=== PATIENT | female | born 1960 | race African-American/Black ===

== ENCOUNTER 2017-10-14 09:43 | Emergency (ER) | payer MEDICAID ==
[~2017-10-14] VITALS: Ht 165.1 cm; Wt 85.3 kg
[~2017-10-14 09:43] MED LIST: ASPIR 8181 MG ORAL; CYMBALTA60 MG ORAL; GENVOYA TABLET1 EACH PO; LIPITOR80 MG ORAL; TIVICAY50 MG ORAL; TRUVADA1 TAB ORAL; UNOBMED
[2017-10-14] MEDS ORDERED: BUPROPION XL300 MG ORAL (09:51)
[2017-10-14 09:55] VITALS: BP 132/76
--- NOTE | 2017-10-14 10:13 | Emergency Room Report ---
History of Present Illness General Chief Complaint: Back Pain-No Injury Source: Patient Present Illness HPI The patient states that she has had flank pain for the past 2 weeks. She states that it has become more severe and unbearable over the past 24 hours. She denies trauma. She denies fever or chills. She denies nausea or vomiting. She denies abdominal pain. She denies previous back injury or other history of back pain. She denies dysuria or hematuria. She denies weakness. She denies tingling or numbness. She denies loss of bowel or bladder control. She has no other complaints. Allergies: Coded Allergies: No Known Allergies (Unverified , 05/03/16) Patient History Past Medical History: see triage record, HTN, COPD, psych hx, HIV, other - HLP Social History: Denies: smoking, alcohol use, drug use Reviewed Nursing Documentation: PMH: Agreed; PSxH: Agreed Nursing Documentation-PMH Hx Cardiac Problems: Yes Hx Hypertension: Yes Hx Pacemaker: No - HIV Hx COPD: Yes Hx Cancer: No Hx Gastrointestinal Problems: No Hx Neurological Problems: No Review of Systems All Other Systems: negative except mentioned in HPI Physical Exam Vital Signs Date Time Temp Pulse Resp B/P (MAP) Pulse Ox O2 Delivery O2 Flow Rate FiO2 10/14/17 09:49 97.9 68 20 141/78 96 Room Air 97.9 Sp02 EP Interpretation: reviewed, normal General Appearance: no apparent distress, alert, GCS 15, non-toxic Head: normocephalic, atraumatic Eyes: bilateral eye normal inspection, bilateral eye PERRL ENT: hearing grossly normal, normal pharynx, no angioedema, normal voice Neck: full range of motion, supple/symm/no masses Respiratory: chest non-tender, lungs clear, normal breath sounds, speaking full sentences Cardiovascular #1: regular rate, rhythm, no edema Gastrointestinal: normal bowel sounds, non tender, soft, non-distended, no guarding, no rebound Rectal: deferred Musculoskeletal: gait/station normal, normal range of motion, other - TTP over the L. paraspinal m. Neurologic: alert, oriented x3, responsive, motor strength/tone normal, sensory intact, speech normal Psychiatric: judgement/insight normal, memory normal, mood/affect normal, no suicidal/homicidal ideation Skin: normal color, no rash, warm/dry, well hydrated Medical Decision Making Diagnostic Impression: Primary Impression: Low back pain ER Course This patient has a clinical presentation consistent with musculoskeletal low back pain. There are no red flags on physical exam or history that would make me concerned for underlying fracture. Xray of the Lumbar spine showed... The patient has pain with range of motion and has tenderness to palpation along the muscle. There is no evidence of compartment syndrome. There is no neurologic deficit. The patient was instructed on supportive home measures. No emergency medical condition was identified. The patient was given return precautions and followup instructions. Laboratory Tests Test 10/14/17 10:12 White Blood Count 5.6 K/UL (4.8-10.8) Red Blood Count 4.94 M/UL (4.20-5.40) Hemoglobin 13.3 G/DL (12.0-16.0) Hematocrit 42.4 % (37.0-47.0) Mean Corpuscular Volume 86 FL (80-99) Mean Corpuscular Hemoglobin 27.0 PG (27.0-31.0) Mean Corpuscular Hemoglobin Concent 31.4 G/DL (32.0-36.0) L Red Cell Distribution Width 13.3 % (11.6-14.8) Platelet Count 366 K/UL (150-450) Mean Platelet Volume 6.7 FL (6.5-10.1) Neutrophils (%) (Auto) 61.9 % (45.0-75.0) Lymphocytes (%) (Auto) 28.2 % (20.0-45.0) Monocytes (%) (Auto) 6.4 % (1.0-10.0) Eosinophils (%) (Auto) 2.6 % (0.0-3.0) Basophils (%) (Auto) 0.9 % (0.0-2.0) Urine Color Pale yellow Urine Appearance Turbid Urine pH 6 (4.5-8.0) Urine Specific [place] 1.020 (1.005-1.035) Urine Protein 1+ (NEGATIVE) H Urine Glucose (UA) Negative (NEGATIVE) Urine Ketones Negative (NEGATIVE) Urine Occult Blood 1+ (NEGATIVE) H Urine Nitrite Negative (NEGATIVE) Urine Bilirubin Negative (NEGATIVE) Urine Urobilinogen Normal MG/DL (0.0-1.0) Urine Leukocyte Esterase 1+ (NEGATIVE) H Urine RBC 0-2 /HPF (0 - 2) Urine WBC 2-4 /HPF (0 - 2) Urine Squamous Epithelial Cells Moderate /LPF (NONE/OCC) H Urine Bacteria Few /HPF (NONE) Sodium Level 144 MMOL/L (136-145) Potassium Level 3.7 MMOL/L (3.5-5.1) Chloride Level 109 MMOL/L (98-107) H Carbon Dioxide Level 26 MMOL/L (21-32) Anion Gap 9 mmol/L (5-15) Blood Urea Nitrogen 17 mg/dL (7-18) Creatinine 1.2 MG/DL (0.55-1.30) Estimate Glomerular Filtration Rate 56.2 mL/min (>60) Glucose Level 111 MG/DL (74-106) H Calcium Level 9.2 MG/DL (8.5-10.1) Other X-Ray Diagnostic Results Other X-Ray Diagnostic Results : X-Ray ordered: L-spine xray # of Views/Limited Vs Complete: Complete Indication: Pain EP Interpretation: No Interpretation: no fractures Impression: No acute disease Electronically Signed by: Be Last Vital Signs Date Time Temp Pulse Resp B/P (MAP) Pulse Ox O2 Delivery O2 Flow Rate FiO2 10/14/17 09:49 97.9 68 20 141/78 96 Room Air 97.9 Status: improved Disposition: HOME, SELF-CARE Condition: Improved Referrals: NON PHYSICIAN (PCP) Patient Instructions: Back Pain, Adult SCAR APONTE D.O. October 14, 2017 10:12
[2017-10-14] MEDS ORDERED: Ketorolac 30mg Inj IV ONE (10:15)
[2017-10-14 10:29] LABS: BASOPHILS % (AUTO) 0.9 % (0.0-2.0); EOSINOPHILS % (AUTO) 2.6 % (0.0-3.0); HEMATOCRIT 42.4 % (37.0-47.0); HEMOGLOBIN 13.3 G/DL (12.0-16.0); LYMPHOCYTES % (AUTO) 28.2 % (20.0-45.0); MEAN CORPUSCULAR VOLUME 86 FL (80-99); MONOCYTES % (AUTO) 6.4 % (1.0-10.0); NEUTROPHILS % (AUTO) 61.9 % (45.0-75.0); PLATELET COUNT 366 K/UL (150-450); RED BLOOD COUNT 4.94 M/UL (4.20-5.40); RED CELL DISTRIBUTION WIDTH 13.3 % (11.6-14.8); WHITE BLOOD COUNT 5.6 K/UL (4.8-10.8)
[2017-10-14 10:30] LABS: APPEARANCE,URINE TURBID; BILIRUBIN, URINE NEGATIVE (NEGATIVE); COLOR,URINE PALE YELLOW; GLUCOSE, URINE (UA) NEGATIVE (NEGATIVE); KETONES,URINE NEGATIVE (NEGATIVE); LEUKOCYTE ESTERASE ,URINE 1+ (NEGATIVE); NITRITE,URINE NEGATIVE (NEGATIVE); PH,URINE 6 (4.5-8.0); PROTEIN,URINE 1+ (NEGATIVE); UROBILINOGEN,URINE NORMAL MG/DL (0.0-1.0)
[2017-10-14 10:35] LABS: ANION GAP 9 mmol/L (5-15); BLOOD UREA NITROGEN 17 mg/dL (7-18); CALCIUM 9.2 MG/DL (8.5-10.1); CARBON DIOXIDE 26 MMOL/L (21-32); CHLORIDE 109 MMOL/L (98-107); CREATININE 1.2 MG/DL (0.55-1.30); POTASSIUM 3.7 MMOL/L (3.5-5.1); SODIUM 144 MMOL/L (136-145)
--- NOTE | 2017-10-14 11:53 | Diagnostic Imaging Report ---
Indication: Increasing and now unbearable left flank pain over 24 hours Technique: 3 views of the lumbar spine Comparison: None Findings: Exam is limited due to patient body habitus limiting contrast resolution. Bony alignment appears normal. Vertebral body heights are preserved. Disc spaces are preserved. No gross acute fractures or dislocations. Pedicles appear intact. Sacral arches are preserved. There are degenerative changes of the sacroiliac joints Impression: No acute bony trauma Sacroiliac degeneration as noted
[2017-10-14] MEDS ORDERED: CYCLOBENZAPRINE10 MG ORAL (12:02)
[2017-10-14] MEDS ORDERED: LIDODERM700 M1 TOPIC (12:02)
[2017-10-14] MEDS ORDERED: ACETAMINOPHEN-1 EAC1 ORAL (12:02)
[2017-10-14 12:20] VITALS: BP 140/74
[2017-10-14 12:28] VITALS: BP 140/74
== END 2017-10-14 12:38 | disposition home or self-care (01) ==
LOC: EMR 10:04
DX: M54.5 Low back pain (principal); J44.9 Chronic obstructive pulmonary disease, unspecified; Z21 Asymptomatic human immunodeficiency virus [HIV] infection status; I10 Essential (primary) hypertension
CPT/HCPCS: 36415; 72020; 80048; 81003; 85025; 96374; 99284; J1885